=== PATIENT | male | born 1945 | race Caucasian/White ===

== ENCOUNTER → 2017-02-04 | Outpatient (CLI) | payer MEDICARE, BC | LOC: MW.CHGS 08:00 | PROVIDERS: ATTEND Surgery | DX: L82.1 Other seborrheic keratosis (principal) | CPT/HCPCS: 17110 ==

== ENCOUNTER 2017-03-14 07:01 | Emergency (ER) | payer MEDICARE, BC ==
[2017-03-14] MEDS ORDERED: Sodium Chloride 0.9% 10 ML Syringe FLUSH PRN (07:06)
[2017-03-14] MEDS ORDERED: Morphine 2 MG/ML Syringe IVPUSH ONE (07:06)
[2017-03-14] MEDS ORDERED: Ondansetron 4 MG/2 ML SDV IVPUSH ONE (07:06)
[2017-03-14] MEDS ORDERED: Sodium Chloride 0.9% 2.5 ML Syringe FLUSH PRN (07:06)
[2017-03-14] MEDS ORDERED: Sodium Chloride 0.9% 1,000 ML IV SCH (07:15)
--- NOTE | 2017-03-14 07:23 | EDM.PDOC ---
ED HPI GENERAL MEDICAL PROBLEM - General Chief Complaint: Back Pain or Injury Stated Complaint: BACK PAIN, NAUSEA, CAN'T GO TO THE BATHROOM Time Seen by Provider: 03/14/17 07:04 - History of Present Illness INITIAL COMMENTS - FREE TEXT/NARRATIVE: HISTORY AND PHYSICAL: History of present illness: Patient's a 72-year-old white male with history of chronic back problems presents with concern of right flank/back pain acute onset approximately 3:30 AM he denies chest shortness of breath but no vomiting no diarrhea he denies trauma and no numbness no weakness Review of systems: As per history of present illness and below otherwise all systems reviewed and negative. Past medical history: As per history of present illness and as reviewed below otherwise noncontributory. Surgical history: As per history of present illness and as reviewed below otherwise noncontributory. Social history: No reported history of drug or alcohol abuse. Family history: As per history of present illness and as reviewed below otherwise noncontributory. Physical exam: HEENT: Atraumatic, normocephalic, pupils reactive, negative for conjunctival pallor or scleral icterus, mucous membranes moist, throat clear, neck supple, nontender, trachea midline. Lungs: Clear to auscultation, breath sounds equal bilaterally, chest nontender. Heart: S1S2, regular, negative for clicks, rubs, or JVD. Abdomen: Soft, nondistended, nontender. Negative for masses or hepatosplenomegaly. Right-sided costovertebral tenderness. Pelvis: Stable nontender. Genitourinary: Deferred. Rectal: Deferred. Extremities: Atraumatic, negative for cords or calf pain. Neurovascular unremarkable. Neuro: Awake, alert, oriented. Cranial nerves II through XII unremarkable. Cerebellum unremarkable. Motor and sensory unremarkable throughout. Exam nonfocal. Diagnostics: CBC CMP troponin PT/INR chest x-ray EKG CT abdomen and pelvis CT lumbosacral spine Therapeutics: IV O2 monitor morphine sulfate 2 mg IV Zofran 4 mg IV Impression: #1 acute right flank pain Definitive disposition and diagnosis as appropriate pending reevaluation and review of above. Lower Back Pain Score (Numeric/FACES): 6 - Related Data Allergies Allergy/AdvReac Type Severity Reaction Status Date / Time No Known Allergies Allergy Verified 03/14/17 07:05 Home Meds: Home Meds Aspirin [Ecotrin] 81 mg PO DAILY 03/14/17 [History] Glimepiride [Amaryl] 2 mg PO BID 03/14/17 [History] Lisinopril 10 mg PO DAILY 03/14/17 [History] Lutein/Minerals/Vit A,C & E [Ocuvite] 1 tab PO DAILY 03/14/17 [History] Simvastatin [Zocor] 40 mg PO DAILY 03/14/17 [History] metFORMIN [Glucophage XR] 1,000 mg PO BID 03/14/17 [History] Past Medical History HEENT History: Reports: None Cardiovascular History: Reports: Hypertension Respiratory History: Reports: None Gastrointestinal History: Reports: None Genitourinary History: Reports: None Musculoskeletal History: Reports: None Psychiatric History: Reports: None Endocrine/Metabolic History: Reports: Diabetes, Type II Dermatologic History: Reports: None - Past Surgical History HEENT Surgical History: Reports: None GI Surgical History: Reports: None Musculoskeletal Surgical History: Reports: None Social & Family History - Tobacco Use Smoking Status *Q: Never Smoker ED ROS GENERAL - Review of Systems Review Of Systems: ROS reveals no pertinent complaints other than HPI. ED EXAM, GENERAL - Physical Exam Exam: See Below (See dictation) Course - Vital Signs Last Recorded V/S: Last Vital Signs Temp 36.2 C 03/14/17 08:15 Pulse 69 03/14/17 08:15 Resp 15 03/14/17 08:15 BP 160/89 H 03/14/17 08:15 Pulse Ox 96 03/14/17 08:15 - Orders/Labs/Meds Orders: Active Orders 24 hr Category Date Time Status Cardiac Monitoring [RC] . DIRECTED Care 03/14/17 07:04 Active EKG Documentation Completion [RC] STAT Care 03/14/17 07:04 Active Pulse Oximetry [RC] ASDIRECTED Care 03/14/17 07:04 Active Abdomen Pelvis wo Cont [CT] Stat Exams 03/14/17 07:05 Taken Lumbar Spine wo Cont [CT] Stat Exams 03/14/17 07:05 Taken Sodium Chloride 0.9% [Normal Saline] 1,000 ml Med 03/14/17 07:15 Active IV STAT Sodium Chloride 0.9% [Normal Saline] 1,000 ml Med 03/14/17 08:23 Ordered IV STAT Sodium Chloride 0.9% [Saline Flush] Med 03/14/17 07:06 Active 10 ml FLUSH ASDIRECTED PRN Sodium Chloride 0.9% [Saline Flush] Med 03/14/17 07:06 Active 2.5 ml FLUSH ASDIRECTED PRN Saline Lock Insert [OM.PC] Stat Oth 03/14/17 07:04 Ordered Medication Orders Sodium Chloride (Normal Saline) 1,000 mls @ 125 mls/hr IV STAT KP Last Admin: 03/14/17 07:13 Dose: 125 mls/hr Sodium Chloride (Normal Saline) 1,000 mls @ 999 mls/hr IV STAT ONE Stop: 03/14/17 09:23 Sodium Chloride (Saline Flush) 10 ml FLUSH ASDIRECTED PRN PRN Reason: Keep Vein Open Sodium Chloride (Saline Flush) 2.5 ml FLUSH ASDIRECTED PRN PRN Reason: Keep Vein Open Labs: Laboratory Tests 03/14/17 03/14/17 03/14/17 Range/Units 07:11 07:11 07:11 WBC 10.44 (4.0-11.0) K/uL RBC 4.85 (4.50-5.90) M/uL Hgb 14.9 (13.0-17.0) g/dL Hct 43.8 (38.0-50.0) % MCV 90.3 (80.0-98.0) fL MCH 30.7 (27.0-32.0) pg MCHC 34.0 (31.0-37.0) g/dL RDW Std Deviation 41.6 (28.0-62.0) fl RDW Coeff of Jeanne 13 (11.0-15.0) % Plt Count 263 (150-400) K/uL MPV 9.60 (7.40-12.00) fL Neut % (Auto) 65.1 (48.0-80.0) % Lymph % (Auto) 26.4 (16.0-40.0) % Mchenry % (Auto) 5.3 (0.0-15.0) % Eos % (Auto) 2.8 (0.0-7.0) % Baso % (Auto) 0.4 (0.0-1.5) % Neut # (Auto) 6.8 H (1.4-5.7) K/uL Lymph # (Auto) 2.8 H (0.6-2.4) K/uL Mchenry # (Auto) 0.6 (0.0-0.8) K/uL Eos # (Auto) 0.3 (0.0-0.7) K/uL Baso # (Auto) 0.0 (0.0-0.1) K/uL Nucleated RBC % 0.0 /100WBC Nucleated RBCs # 0 K/uL INR 1.13 H (0.86-1.11) Sodium 139 (136-146) mmol/L Potassium 4.2 (3.5-5.1) mmol/L Chloride 106 (98-110) mmol/L Carbon Dioxide 23 (21-31) mmol/L BUN 17 (6.0-23.0) mg/dL Creatinine 1.4 (0.6-1.5) mg/dL Est Cr Clr Drug Dosing 51.58 mL/min Estimated GFR (MDRD) 49.7 ml/min Glucose 208 H (60-110) mg/dL Calcium 9.2 (8.8-10.8) mg/dL Total Bilirubin 0.6 (0.1-1.5) mg/dL AST 15 (5-40) IU/L ALT 26 (8-54) IU/L Alkaline Phosphatase 63 (40-150) Troponin I (0.0-0.29) NG/ML Total Protein 7.7 (6.0-8.0) g/dL Albumin 4.2 (3.4-4.8) g/dL Globulin 3.5 (2.0-3.5) g/dL Albumin/Globulin Ratio 1.2 L (1.3-2.8) Urine Color Urine Appearance Urine pH (5.0-8.0) Ur Specific Fortson (1.001-1.035) Urine Protein (NEGATIVE) mg/dL Urine Glucose (UA) (NEGATIVE) mg/dL Urine Ketones (NEGATIVE) mg/dL Urine Occult Blood (NEGATIVE) Urine Nitrite (NEGATIVE) Urine Bilirubin (NEGATIVE) Urine Urobilinogen (<2.0) EU/dL Ur Leukocyte Esterase (NEGATIVE) Urine RBC (0-2/HPF) Urine WBC (0-5/HPF) Ur Epithelial Cells (NONE-FEW) Urine Bacteria (NEGATIVE) Urine Mucus (NONE-MOD) 03/14/17 03/14/17 Range/Units 07:11 07:58 WBC (4.0-11.0) K/uL RBC (4.50-5.90) M/uL Hgb (13.0-17.0) g/dL Hct (38.0-50.0) % MCV (80.0-98.0) fL MCH (27.0-32.0) pg MCHC (31.0-37.0) g/dL RDW Std Deviation (28.0-62.0) fl RDW Coeff of Jeanne (11.0-15.0) % Plt Count (150-400) K/uL MPV (7.40-12.00) fL Neut % (Auto) (48.0-80.0) % Lymph % (Auto) (16.0-40.0) % Mchenry % (Auto) (0.0-15.0) % Eos % (Auto) (0.0-7.0) % Baso % (Auto) (0.0-1.5) % Neut # (Auto) (1.4-5.7) K/uL Lymph # (Auto) (0.6-2.4) K/uL Mchenry # (Auto) (0.0-0.8) K/uL Eos # (Auto) (0.0-0.7) K/uL Baso # (Auto) (0.0-0.1) K/uL Nucleated RBC % /100WBC Nucleated RBCs # K/uL INR (0.86-1.11) Sodium (136-146) mmol/L Potassium (3.5-5.1) mmol/L Chloride (98-110) mmol/L Carbon Dioxide (21-31) mmol/L BUN (6.0-23.0) mg/dL Creatinine (0.6-1.5) mg/dL Est Cr Clr Drug Dosing mL/min Estimated GFR (MDRD) ml/min Glucose (60-110) mg/dL Calcium (8.8-10.8) mg/dL Total Bilirubin (0.1-1.5) mg/dL AST (5-40) IU/L ALT (8-54) IU/L Alkaline Phosphatase (40-150) Troponin I < 0.10 (0.0-0.29) NG/ML Total Protein (6.0-8.0) g/dL Albumin (3.4-4.8) g/dL Globulin (2.0-3.5) g/dL Albumin/Globulin Ratio (1.3-2.8) Urine Color YELLOW Urine Appearance CLEAR Urine pH 5.5 (5.0-8.0) Ur Specific [place]son >= 1.030 (1.001-1.035) Urine Protein 30 (NEGATIVE) mg/dL Urine Glucose (UA) 100 H (NEGATIVE) mg/dL Urine Ketones NEGATIVE (NEGATIVE) mg/dL Urine Occult Blood NEGATIVE (NEGATIVE) Urine Nitrite NEGATIVE (NEGATIVE) Urine Bilirubin NEGATIVE (NEGATIVE) Urine Urobilinogen 0.2 (<2.0) EU/dL Ur Leukocyte Esterase NEGATIVE (NEGATIVE) Urine RBC 0-1 (0-2/HPF) Urine WBC 1-3 (0-5/HPF) Ur Epithelial Cells RARE (NONE-FEW) Urine Bacteria FEW (NEGATIVE) Urine Mucus HEAVY (NONE-MOD) Meds: Medications Generic Name Dose Route Start Last Admin Trade Name Juanito PRN Reason Stop Dose Admin Sodium Chloride 1,000 mls @ 125 mls/hr 03/14/17 07:15 03/14/17 07:13 Normal Saline IV 125 mls/hr STAT KP Administration Sodium Chloride 1,000 mls @ 999 mls/hr 03/14/17 08:23 Normal Saline IV 03/14/17 09:23 STAT ONE Sodium Chloride 10 ml 03/14/17 07:06 Saline Flush FLUSH ASDIRECTED PRN Keep Vein Open Sodium Chloride 2.5 ml 03/14/17 07:06 Saline Flush FLUSH ASDIRECTED PRN Keep Vein Open Discontinued Medications Generic Name Dose Route Start Last Admin Trade Name Juanito PRN Reason Stop Dose Admin Ketorolac Tromethamine 15 mg 03/14/17 08:23 Toradol IVPUSH 03/14/17 08:24 ONETIME ONE Morphine Sulfate 2 mg 03/14/17 07:06 03/14/17 07:14 Morphine IVPUSH 03/14/17 07:07 2 mg ONETIME ONE Administration Ondansetron HCl 4 mg 03/14/17 07:06 03/14/17 07:12 Zofran IVPUSH 03/14/17 07:07 4 mg ONETIME ONE Administration Tamsulosin HCl 0.4 mg 03/14/17 08:23 Flomax PO 03/14/17 08:24 ONETIME ONE Departure - Departure Time of Disposition: 08:26 Disposition: Home, Self-Care 01 Condition: Good Clinical Impression: Kidney stone on right side - Discharge Information Forms: ED Department Discharge Additional Instructions: The following information is given to patients seen in the emergency department who are being discharged to home. This information is to outline your options for follow-up care. We provide all patients seen in our emergency department with a follow-up referral. The need for follow-up, as well as the timing and circumstances, are variable depending upon the specifics of your emergency department visit. If you don't have a primary care physician on staff, we will provide you with a referral. We always advise you to contact your personal physician following an emergency department visit to inform them of the circumstance of the visit and for follow-up with them and/or the need for any referrals to a consulting specialist. The emergency department will also refer you to a specialist when appropriate. This referral assures that you have the opportunity for followup care with a specialist. All of these measure are taken in an effort to provide you with optimal care, which includes your followup. Under all circumstances we always encourage you to contact your private physician who remains a resource for coordinating your care. When calling for followup care, please make the office aware that this follow-up is from your recent emergency room visit. If for any reason you are refused follow-up, please contact the [facility] emergency department at and asked to speak to the emergency department charge nurse. [facility] Specialty Care - Urology [address] [place] [id number] Hydrocodone Flomax Zofran as prescribed push fluids follow up with urology above as discussed return as needed as discussed - My Orders Last 24 Hours: My Active Orders 03/14/17 07:04 Cardiac Monitoring [RC] . DIRECTED EKG Documentation Completion [RC] STAT Pulse Oximetry [RC] ASDIRECTED Saline Lock Insert [OM.PC] Stat 03/14/17 07:05 Abdomen Pelvis wo Cont [CT] Stat Lumbar Spine wo Cont [CT] Stat 03/14/17 07:06 Sodium Chloride 0.9% [Saline Flush] 10 ml FLUSH ASDIRECTED PRN Sodium Chloride 0.9% [Saline Flush] 2.5 ml FLUSH ASDIRECTED PRN 03/14/17 07:15 Sodium Chloride 0.9% [Normal Saline] 1,000 ml IV STAT 03/14/17 08:23 Sodium Chloride 0.9% [Normal Saline] 1,000 ml IV STAT - Assessment/Plan Last 24 Hours: My Active Orders 03/14/17 07:04 Cardiac Monitoring [RC] . DIRECTED EKG Documentation Completion [RC] STAT Pulse Oximetry [RC] ASDIRECTED Saline Lock Insert [OM.PC] Stat 03/14/17 07:05 Abdomen Pelvis wo Cont [CT] Stat Lumbar Spine wo Cont [CT] Stat 03/14/17 07:06 Sodium Chloride 0.9% [Saline Flush] 10 ml FLUSH ASDIRECTED PRN Sodium Chloride 0.9% [Saline Flush] 2.5 ml FLUSH ASDIRECTED PRN 03/14/17 07:15 Sodium Chloride 0.9% [Normal Saline] 1,000 ml IV STAT 03/14/17 08:23 Sodium Chloride 0.9% [Normal Saline] 1,000 ml IV STAT
[2017-03-14] MEDS ORDERED: Ketorolac 30 MG/ML SDV IVPUSH ONE (08:23)
[2017-03-14] MEDS ORDERED: Sodium Chloride 0.9% 1,000 ML IV ONE (08:23)
[2017-03-14] MEDS ORDERED: Tamsulosin 0.4 MG Cap.ER PO ONE (08:23)
[2017-03-14 09:37] VITALS: BP 152/84
--- NOTE | 2017-03-14 13:46 | CT ---
EXAM DATE: 03/14/17 PATIENT'S AGE: 72 Patient: DARRYN ROLDAN Facility: [place], [place] Site . Site : 1945 Study: CT Spine Lumbar [id number]/30/2017 7:43:33 AM Ordering Physician: Doctor Griffin Final Report: INDICATION: Right-sided abdominal pain since 2 a.m.; nausea; inability to urinate. Comparison: CT abdomen and pelvis without intravenous contrast March 14, 2017. Technique: CT lumbar sacral spine without intravenous contrast; coronal and sagittal reformats. Findings: Disc space narrowing and disc degeneration at L1-2 and L2-3. Hemangioma involving T12 and L2. No evidence of herniation of the intervertebral discs. No evidence of foraminal narrowing. No paraspinal soft tissue mass densities. No evidence of fracture or dislocation. No evidence of spondylolysis or spondylolisthesis. Disk degeneration and disc space narrowing at L5-S1. Evidence of facet joint arthritis lower lumbar spine bilateral. Hydronephrosis and hydroureter on the right side. Impression: 1. Hemangiomas involving T12 and L2. 2. Disc space narrowing and disc degeneration at L1-2, L2-3 and L5-S1. 3. No evidence of disc herniation or foraminal narrowing on either side. 4. 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 5. Hydronephrosis and hydroureter on the right. Please note that all CT scans at this facility use dose modulation, iterative reconstruction, and/or weight-based dosing when appropriate to reduce radiation dose to as low as reasonably achievable. Dictated by Manuel Temple MD @ Mar 14 2017 8:13AM (Electronic Signature) Report Signed by Proxy. [facility]
--- NOTE | 2017-03-14 13:47 | CT ---
EXAM DATE: 03/14/17 PATIENT'S AGE: 72 Patient: DARRYN ROLDAN Facility: [place], [place] : 1945 Study: CT Abdomen/Pelvis [id number]/30/2017 8:02:41 AM Ordering Physician: Cherie Final Report: INDICATION: Right flank pain since 2 a.m.; nausea; inability to urinate. Comparison: CT lumbar sacral spine same date. Technique: CT abdomen and pelvis without intravenous or oral contrast; coronal and sagittal reformats. Findings: Atelectatic changes inferior segment left lingula. 1 cm pleural-based soft tissue nodule left lower lobe as noted on slice 14 of series 201; followup chest CT suggested. No evidence of pleural effusion. No focal hepatic or splenic pathology. No pancreatic pathology. Gallbladder is unremarkable. No adrenal pathology. Nonobstructing renal calculus mid posterior calyx left kidney. Hydronephrosis and hydroureter on the right with a 5 mm stone at the ureterovesical junction on the right side. No retroperitoneal lymphadenopathy. Normal appendix. No evidence of abdominal or pelvic ascites. CT study of the pelvis is unremarkable. Impression: 1. 5 mm stone at the right ureterovesical junction causing hydronephrosis and hydroureter. 2. Nonobstructing calculus mid posterior calyx left kidney. 3. Normal appendix. 4. 1 cm pleural-based nodule lower lobe left lung; suggest obtaining a dedicated chest CT. 5. Atelectatic changes inferior segment left lingula. Please note that all CT scans at this facility use dose modulation, iterative reconstruction, and/or weight-based dosing when appropriate to reduce radiation dose to as low as reasonably achievable. Dictated by Manuel Temple MD @ Mar 14 2017 8:08AM (Electronic Signature) Report Signed by Proxy. [facility]
== END 2017-03-14 09:21 | disposition home or self-care (01) ==
LOC: MW.ED 07:01
DX: N13.2 Hydronephrosis with renal and ureteral calculous obstruction (principal); E11.9 Type 2 diabetes mellitus without complications; I10 Essential (primary) hypertension; Z79.82 Long term (current) use of aspirin; Z79.899 Other long term (current) drug therapy; Z79.84 Long term (current) use of oral hypoglycemic drugs
CPT/HCPCS: 36415; 72131; 74176; 80053; 81001; 84484; 85025; 85610; 87086; 96361; 96374; 96375; 99284; A9270; J1885; J2270; J2405; J7040

== ENCOUNTER 2019-01-21 20:42 | Emergency (ER) | payer MEDICARE, BC ==
[2019-01-21] MEDS ORDERED: Bacitracin Oint 1 GM U/D Packet TOP ONE (21:08)
--- NOTE | 2019-01-21 21:10 | EDM.PDOC ---
ED HPI GENERAL MEDICAL PROBLEM - General Chief Complaint: Skin Complaint Stated Complaint: BUMP ON BACK Time Seen by Provider: 01/21/19 20:44 - History of Present Illness INITIAL COMMENTS - FREE TEXT/NARRATIVE: HISTORY AND PHYSICAL: History of present illness: The patient is a 73-year-old male with a history of diabetes hypertension and hypercholesterolemia who follows in our clinic and presents with a bump on his left back that he noticed a couple of days ago. He says is not been itchy or painful and he doesn't really feel anything in the area but his was concerned as it looked red and and there was an open area and the skin. He's had no systemic complaints of fever chills chest pain or shortness of breath no abdominal pain and he says his diabetes is under good control. He says that he has no discomfort in his back and in fact doesn't even notice that it's there. Review of systems: As per history of present illness and below otherwise all systems reviewed and negative. Past medical history: As per history of present illness and as reviewed below otherwise noncontributory. Surgical history: As per history of present illness and as reviewed below otherwise noncontributory. Social history: No reported history of drug or alcohol abuse. Family history: As per history of present illness and as reviewed below otherwise noncontributory. Physical exam: HEENT: Atraumatic, normocephalic, negative for conjunctival pallor or scleral icterus, mucous membranes moist, throat clear, neck supple, nontender, trachea midline. Lungs: Clear to auscultation, breath sounds equal bilaterally, chest nontender. Heart: S1S2, regular rate and rhythm no overt murmurs Abdomen: Soft, nondistended, nontender. NABS Pelvis: Deferred Genitourinary: Deferred. Rectal: Deferred. Extremities: Atraumatic, full range of motion Neurovascular unremarkable. Neuro: Awake, alert, oriented. Cranial nerves II through XII unremarkable. Cerebellum unremarkable. Motor and sensory unremarkable throughout. Exam nonfocal. Skin: Turgor is normal and there are no overt rashes or lesions with the exception of the left upper back just superior to the scapula area where there is a well demarcated pinkish area of induration that measures 3 x 4 cm. Within the center of this there are 2 more hardened areas one of which looks like the surface of the superficial skin has been scratched off and the other has a small punctum but there is no pus or fluctuance. There is absolutely no tenderness in the area or fluctuance and it is mostly hardened. Remainder the back is without any lesions Diagnostics: [] Therapeutics: Bacitracin nonstick dressing to I explained to the patient that this almost looks like some kind of a bite that is getting infected and indurated. I will advise him on local wound care and place bacitracin on it here. I will place him on antibiotics and stress follow-up in the clinic Impression: Back lesion/cellulitis Definitive disposition and diagnosis as appropriate pending reevaluation and review of above. - Related Data Allergies Allergy/AdvReac Type Severity Reaction Status Date / Time No Known Allergies Allergy Verified 01/21/19 20:47 Home Meds: Home Meds Aspirin [Ecotrin] 81 mg PO DAILY 03/14/17 [History] Glimepiride [Amaryl] 2 mg PO BID 03/14/17 [History] Lisinopril 10 mg PO DAILY 03/14/17 [History] Lutein/Minerals/Vit A,C & E [Ocuvite] 1 tab PO DAILY 03/14/17 [History] Simvastatin [Zocor] 40 mg PO DAILY 03/14/17 [History] metFORMIN [Glucophage XR] 1,000 mg PO BID 03/14/17 [History] Past Medical History HEENT History: Reports: None Cardiovascular History: Reports: High Cholesterol, Hypertension Respiratory History: Reports: None Gastrointestinal History: Reports: None Genitourinary History: Reports: None Musculoskeletal History: Reports: None Psychiatric History: Reports: None Endocrine/Metabolic History: Reports: Diabetes, Type II Dermatologic History: Reports: None - Past Surgical History HEENT Surgical History: Reports: None GI Surgical History: Reports: None Musculoskeletal Surgical History: Reports: Amputation, Other (See Below) Other Musculoskeletal Surgeries/Procedures:: finger Social & Family History - Family History Family Medical History: Noncontributory - Tobacco Use Smoking Status *Q: Never Smoker - Recreational Drug Use Recreational Drug Use: No ED ROS GENERAL - Review of Systems Review Of Systems: ROS reveals no pertinent complaints other than HPI. ED EXAM, SKIN/RASH Exam: See Below (See dictation) Course - Vital Signs Last Recorded V/S: Last Vital Signs Temp 36.1 C 01/21/19 20:50 Pulse 87 01/21/19 20:50 Resp 18 01/21/19 20:50 BP 148/76 H 01/21/19 20:50 Pulse Ox 94 L 01/21/19 20:50 Departure - Departure Time of Disposition: 21:08 Disposition: Home, Self-Care 01 Condition: Good Clinical Impression: Back skin lesion Cellulitis Qualifiers: Site of cellulitis: other site Qualified Code(s): L03.818 - Cellulitis of other sites - Discharge Information Referrals: Ev Colby PA [Primary Care Provider] - Additional Instructions: The following information is given to patients seen in the emergency department who are being discharged to home. This information is to outline your options for follow-up care. We provide all patients seen in our emergency department with a follow-up referral. The need for follow-up, as well as the timing and circumstances, are variable depending upon the specifics of your emergency department visit. If you don't have a primary care physician on staff, we will provide you with a referral. We always advise you to contact your personal physician following an emergency department visit to inform them of the circumstance of the visit and for follow-up with them and/or the need for any referrals to a consulting specialist. The emergency department will also refer you to a specialist when appropriate. This referral assures that you have the opportunity for followup care with a specialist. All of these measure are taken in an effort to provide you with optimal care, which includes your followup. Under all circumstances we always encourage you to contact your private physician who remains a resource for coordinating your care. When calling for followup care, please make the office aware that this follow-up is from your recent emergency room visit. If for any reason you are refused follow-up, please contact the [facility] emergency department at and ask to speak to the emergency department charge nurse. [facility] Primary care- Internal Medicine and Family [address] [address] Keep area clean and dry cleansing with mild soap and water pat dry and apply bacitracin or Neosporin. You may take Benadryl [id number] or apply Benadryl cream for any itching. Please take antibiotics as prescribed and call and schedule a follow-up appointment in the clinic for further care and evaluation. Return to ER as needed and as discussed
[2019-01-21 21:23] VITALS: BP 138/70
== END 2019-01-21 21:25 | disposition home or self-care (01) ==
LOC: MW.ED 20:42
DX: L03.312 Cellulitis of back [any part except buttock and flank] (principal); E78.00 Pure hypercholesterolemia, unspecified; I10 Essential (primary) hypertension; E11.9 Type 2 diabetes mellitus without complications; Z79.82 Long term (current) use of aspirin; Z79.899 Other long term (current) drug therapy
CPT/HCPCS: 99282; 99283

== ENCOUNTER 2019-01-29 15:19 | Emergency (ER) | payer MEDICARE, BC ==
--- NOTE | 2019-01-29 15:42 | EDM.PDOC ---
ED HPI GENERAL MEDICAL PROBLEM - General Chief Complaint: Laceration Stated Complaint: INJURED FINGER Time Seen by Provider: 01/29/19 15:37 - History of Present Illness INITIAL COMMENTS - FREE TEXT/NARRATIVE: HISTORY AND PHYSICAL: History of present illness: Patient is 73-year-old white male presents with a laceration of third digit of his left hand that occurred when he was cutting on her mouth he denies trauma concern Review of systems: As per history of present illness and below otherwise all systems reviewed and negative. Past medical history: As per history of present illness and as reviewed below otherwise noncontributory. Surgical history: As per history of present illness and as reviewed below otherwise noncontributory. Social history: No reported history of drug or alcohol abuse. Family history: As per history of present illness and as reviewed below otherwise noncontributory. Physical exam: HEENT: Atraumatic, normocephalic, pupils reactive, negative for conjunctival pallor or scleral icterus, mucous membranes moist, throat clear, neck supple, nontender, trachea midline. Lungs: Clear to auscultation, breath sounds equal bilaterally, chest nontender. Heart: S1S2, regular, negative for clicks, rubs, or JVD. Abdomen: Soft, nondistended, nontender. Negative for masses or hepatosplenomegaly. Negative for costovertebral tenderness. Pelvis: Stable nontender. Genitourinary: Deferred. Rectal: Deferred. Extremities: Patient has approximately a 2-1/2 cm moderate depth laceration to the third digit of his left hand this is distal involvement and neurovascular exam is unremarkable Neuro: Awake, alert, oriented. Cranial nerves II through XII unremarkable. Cerebellum unremarkable. Motor and sensory unremarkable throughout. Exam nonfocal. Diagnostics: None Therapeutics: Tetanus was updated patient was anesthetized 1% lidocaine without epinephrine prepped and draped in sterile manner and closed with 5-0 absorbable suture bacitracin dressing was applied Impression: #1 hand injury ( laceration third digit left hand) Definitive disposition and diagnosis as appropriate pending reevaluation and review of above. - Related Data Allergies Allergy/AdvReac Type Severity Reaction Status Date / Time No Known Allergies Allergy Verified 01/29/19 15:31 Home Meds: Home Meds Aspirin [Ecotrin] 81 mg PO DAILY 03/14/17 [History] Glimepiride [Amaryl] 2 mg PO BID 03/14/17 [History] Lisinopril 10 mg PO DAILY 03/14/17 [History] Lutein/Minerals/Vit A,C & E [Ocuvite] 1 tab PO DAILY 03/14/17 [History] Simvastatin [Zocor] 40 mg PO DAILY 03/14/17 [History] metFORMIN [Glucophage XR] 1,000 mg PO BID 03/14/17 [History] Canagliflozin [Invokana] 100 mg PO DAILY 01/29/19 [History] Past Medical History HEENT History: Reports: None Cardiovascular History: Reports: High Cholesterol, Hypertension Respiratory History: Reports: None Gastrointestinal History: Reports: None Genitourinary History: Reports: None Musculoskeletal History: Reports: None Psychiatric History: Reports: None Endocrine/Metabolic History: Reports: Diabetes, Type II Dermatologic History: Reports: None - Infectious Disease History Infectious Disease History: Reports: Chicken Pox, Mumps, Shingles - Past Surgical History HEENT Surgical History: Reports: None GI Surgical History: Reports: None Musculoskeletal Surgical History: Reports: Amputation, Other (See Below) Other Musculoskeletal Surgeries/Procedures:: finger Social & Family History - Family History Family Medical History: Noncontributory - Tobacco Use Smoking Status *Q: Never Smoker - Recreational Drug Use Recreational Drug Use: No ED ROS GENERAL - Review of Systems Review Of Systems: ROS reveals no pertinent complaints other than HPI. ED EXAM, SKIN/RASH Exam: See Below (See dictation) Course - Vital Signs Last Recorded V/S: Last Vital Signs Temp 36.1 C 01/29/19 15:26 Pulse 83 01/29/19 15:26 Resp 18 01/29/19 15:26 BP 146/84 H 01/29/19 15:26 Pulse Ox 92 L 01/29/19 15:26 Departure - Departure Time of Disposition: 15:41 Disposition: Home, Self-Care 01 Condition: Good Clinical Impression: Hand laceration - Discharge Information Referrals: PCP,Unknown [Primary Care Provider] - Additional Instructions: The following information is given to patients seen in the emergency department who are being discharged to home. This information is to outline your options for follow-up care. We provide all patients seen in our emergency department with a follow-up referral. The need for follow-up, as well as the timing and circumstances, are variable depending upon the specifics of your emergency department visit. If you don't have a primary care physician on staff, we will provide you with a referral. We always advise you to contact your personal physician following an emergency department visit to inform them of the circumstance of the visit and for follow-up with them and/or the need for any referrals to a consulting specialist. The emergency department will also refer you to a specialist when appropriate. This referral assures that you have the opportunity for followup care with a specialist. All of these measure are taken in an effort to provide you with optimal care, which includes your followup. Under all circumstances we always encourage you to contact your private physician who remains a resource for coordinating your care. When calling for followup care, please make the office aware that this follow-up is from your recent emergency room visit. If for any reason you are refused follow-up, please contact the [facility] emergency department at and asked to speak to the emergency department charge nurse. Follow-up primary medical doctor for wound check and return as needed as discussed
[2019-01-29] MEDS ORDERED: Diphtheria,Pertussis(Acell),Tetanus Vaccine 0.5 ML Syringe IM ONE (16:09)
[2019-01-29 16:28] VITALS: BP 133/77
== END 2019-01-29 16:28 | disposition home or self-care (01) ==
LOC: MW.ED 15:19
DX: S61.213A Laceration without foreign body of left middle finger without damage to nail, initial encounter (principal); E78.00 Pure hypercholesterolemia, unspecified; E11.9 Type 2 diabetes mellitus without complications; I10 Essential (primary) hypertension; Z79.82 Long term (current) use of aspirin; Z79.84 Long term (current) use of oral hypoglycemic drugs; Z79.899 Other long term (current) drug therapy; Z23 Encounter for immunization; W45.8XXA Other foreign body or object entering through skin, initial encounter
CPT/HCPCS: 12001; 90471; 90715; 99282; J2001

== ENCOUNTER 2020-01-20 15:07 | Emergency (ER) | payer MEDICARE, BC ==
[2020-01-20] MEDS ORDERED: Ketorolac 30 MG/ML SDV IM ONE (15:21)
--- NOTE | 2020-01-20 15:21 | EDM.PDOC ---
ED HPI GENERAL MEDICAL PROBLEM - General Chief Complaint: Lower Extremity Injury/Pain Stated Complaint: LEFT HIP PAIN Time Seen by Provider: 01/20/20 15:13 Source of Information: Reports: Patient History Limitations: Reports: No Limitations - History of Present Illness INITIAL COMMENTS - FREE TEXT/NARRATIVE: HISTORY AND PHYSICAL: History of present illness: Patient is a 74-year-old male who presents to the emergency room with complaints of left lateral hip pain x4 to 6 weeks. He states he has noticed this pain which has been mild and constant over the past 1-1/2 months, worse within the last 2 days. He describes the pain over the past 2 days as a burning sensation and achy. He denies any injury, trauma or falls. No previous fracture or known injury to the affected extremity. This pain does not radiate into his groin/testes or into the gluteal muscle. Physical activity does not make the pain worse. His skin is intact without any redness, swelling, rashes or tenderness to palpation. Review of systems: As per history of present illness and below otherwise all systems reviewed and negative. Past medical history: As per history of present illness and as reviewed below otherwise noncontributory. Surgical history: As per history of present illness and as reviewed below otherwise noncontributory. Social history: See social history for further information Family history: As per history of present illness and as reviewed below otherwise noncontributory. Physical exam: General: Well-developed and well-nourished 74-year-old male. Alert and oriented. Nontoxic-appearing and in no acute distress. HEENT: Atraumatic, normocephalic, pupils equal and reactive bilaterally, negative for conjunctival pallor or scleral icterus, mucous membranes moist, trachea midline. No drooling or trismus noted. No meningeal signs. No hot potato voice noted. Lungs: Clear to auscultation, breath sounds equal bilaterally, chest nontender. Heart: S1S2, regular rate and rhythm without overt murmur Abdomen: Soft, nondistended, nontender. Negative for masses or hepatosplenomegaly. Negative for costovertebral tenderness. Pelvis: Stable nontender. Skin: Intact, warm, dry. No lesions or rashes noted. C-spine/Back: No pinpoint vertebral tenderness upon palpation. No crepitus, step -offs or obvious deformities. Patient is ambulatory into the emergency room without difficulty or deficit. Able to rock back on heels and walk on toes. Denies any urinary or fecal incontinence. Denies any numbness, tingling or saddle paresthesia. Extremities: Atraumatic, moves all extremities per self without difficulty or deficits, left hip is nontender, full ROM, negative for cords or calf pain. Neurovascular unremarkable. Neuro: Awake, alert, oriented. Cranial nerves II through XII unremarkable. Cerebellum unremarkable. Motor and sensory unremarkable throughout. Exam nonfocal. Notes: X-ray shows no acute bony abnormalities. Mild joint space narrowing in both hips. I do not have any concern at this time for a septic joint; we discussed the need for follow up with orthopedics. Patient states he is pain free at this time. Supportive care measures were reviewed and discussed. Voices understanding and is agreeable to plan of care. Denies any further questions or concerns at this time. Diagnostics: Pelvis with left hip Therapeutics: Toradol IM Prescription: Diclofenac 50mg BID PRN Impression: Left hip pain Plan: 1. Rest, ice, elevate the affected extremity. 2. Tylenol and/or Ibuprofen as needed for pain management. 3. Follow up with the Orthopedic provider as we discussed, call tomorrow to set up follow-up appointment. Return to the ED as needed and as discussed. Definitive disposition and diagnosis as appropriate pending reevaluation and review of above. left hip Pain Score (Numeric/FACES): 5 - Related Data Allergies Allergy/AdvReac Type Severity Reaction Status Date / Time No Known Allergies Allergy Verified 01/29/19 15:31 Home Meds: Home Meds Aspirin [Ecotrin EC] 81 mg PO DAILY 03/14/17 [History] Glimepiride [Amaryl] 2 mg PO BID 03/14/17 [History] Lisinopril 10 mg PO DAILY 03/14/17 [History] Lutein/Minerals/Vit A,C & E [Ocuvite] 1 tab PO DAILY 03/14/17 [History] Simvastatin [Zocor] 40 mg PO DAILY 03/14/17 [History] metFORMIN [Glucophage XR] 1,000 mg PO BID 03/14/17 [History] Canagliflozin [Invokana] 100 mg PO DAILY 01/29/19 [History] Diclofenac Sodium 50 mg PO BID PRN #20 tablet. 01/20/20 [Rx] Past Medical History HEENT History: Reports: None Cardiovascular History: Reports: High Cholesterol, Hypertension Respiratory History: Reports: None Gastrointestinal History: Reports: None Genitourinary History: Reports: None Musculoskeletal History: Reports: None Psychiatric History: Reports: None Endocrine/Metabolic History: Reports: Diabetes, Type II Dermatologic History: Reports: None - Infectious Disease History Infectious Disease History: Reports: Chicken Pox, Mumps, Shingles - Past Surgical History HEENT Surgical History: Reports: None GI Surgical History: Reports: None Musculoskeletal Surgical History: Reports: Amputation, Other (See Below) Other Musculoskeletal Surgeries/Procedures:: finger Social & Family History - Family History Family Medical History: Noncontributory Review of Systems - Review of Systems Review Of Systems: Comprehensive ROS is negative, except as noted in HPI. ED EXAM, GENERAL - Physical Exam Exam: See Below (See dictation) Course - Vital Signs Last Recorded V/S: Last Vital Signs Temp 96.5 F L 01/20/20 15:10 Pulse 119 H 01/20/20 15:10 Resp 18 01/20/20 15:10 BP 148/110 H 01/20/20 15:10 Pulse Ox 92 L 01/20/20 15:10 - Orders/Labs/Meds Meds: Medications Discontinued Medications Generic Name Dose Route Start Last Admin Trade Name Juanito PRN Reason Stop Dose Admin Ketorolac Tromethamine 30 mg 01/20/20 15:21 01/20/20 15:26 Toradol IM 01/20/20 15:22 30 mg ONETIME ONE Administration Departure - Departure Time of Disposition: 16:07 Disposition: Home, Self-Care 01 Clinical Impression: Left hip pain - Discharge Information Prescriptions: Diclofenac Sodium 50 mg PO BID PRN #20 tablet.dr DIAZ Reason: Pain Referrals: Alverto Echols MD [Primary Care Provider] - Forms: ED Department Discharge Additional Instructions: The following information is given to patients seen in the emergency department who are being discharged to home. This information is to outline your options for follow-up care. We provide all patients seen in our emergency department with a follow-up referral. The need for follow-up, as well as the timing and circumstances, are variable depending upon the specifics of your emergency department visit. If you don't have a primary care physician on staff, we will provide you with a referral. We always advise you to contact your personal physician following an emergency department visit to inform them of the circumstance of the visit and for follow-up with them and/or the need for any referrals to a consulting specialist. The emergency department will also refer you to a specialist when appropriate. This referral assures that you have the opportunity for follow-up care with a specialist. All of these measure are taken in an effort to provide you with optimal care, which includes your follow-up. Under all circumstances we always encourage you to contact your private physician who remains a resource for coordinating your care. When calling for follow-up care, please make the office aware that this follow-up is from your recent emergency room visit. If for any reason you are refused follow-up, please contact the [facility] Emergency Department at and asked to speak to the emergency department charge nurse. [facility] [address], [address] [place] [address] 1. Rest and gentle heat affected extremity. 2. Tylenol and/or Ibuprofen as needed for pain management. 3. Follow up with the Orthopedic provider as we discussed, call tomorrow to set up follow-up appointment. Return to the ED as needed and as discussed. Sepsis Event Note - Focused Exam Vital Signs: Vital Signs Temp Pulse Resp BP Pulse Ox 01/20/20 15:10 96.5 F L 119 H 18 148/110 H 92 L Date Exam was Performed: 01/20/20 Time Exam was Performed: 16:09
--- NOTE | 2020-01-20 16:04 | CR ---
Pelvis and left hip: AP view of the pelvis was obtained as well as AP view of the left hip and frog-leg lateral view left hip. Mild joint space narrowing is seen within both hips. Osteopenia is noted. Vascular calcification is seen. No acute fracture or dislocation is seen. Impression: 1. Mild joint space narrowing within both hips. 2. Other findings as noted above. 3. No acute abnormality is appreciated. Diagnostic code #2 This report was dictated in MDT
[2020-01-20 16:32] VITALS: BP 114/71; PULSE 96
== END 2020-01-20 16:15 | disposition home or self-care (01) ==
LOC: MW.ED 15:07
DX: M25.552 Pain in left hip (principal); E78.00 Pure hypercholesterolemia, unspecified; I10 Essential (primary) hypertension; E11.9 Type 2 diabetes mellitus without complications; Z79.84 Long term (current) use of oral hypoglycemic drugs; Z79.82 Long term (current) use of aspirin; Z79.899 Other long term (current) drug therapy
CPT/HCPCS: 73502; 96372; 99283; J1885

== ENCOUNTER 2020-02-28 10:25 | Day surgery (SDC) | payer MEDICARE, BC ==
[~2020-02-28 10:25] MED LIST: Lactated Ringers 1,000 ML IV SCH; ceFAZolin 2 GM in Premix Bag 1 BAG IV SCH
[2020-02-28] MEDS ORDERED: Bupivacaine 0.5% 10 ML SDV ONE (11:08)
[2020-02-28] MEDS ORDERED: ceFAZolin 1 GM Vial ONE (11:08)
[2020-02-28] MEDS ORDERED: Propofol 200 MG/20 ML SDV ONE (11:11)
[2020-02-28] MEDS ORDERED: fentaNYL 250 MCG/5 ML SDV ONE (11:11)
--- NOTE | 2020-02-28 11:13 | PCM.PREANE ---
Preanesthetic Assessment - Anesthesia/Transfusion/Family Hx Anesthesia History: Prior Anesthesia Without Reaction Family History of Anesthesia Reaction: No Transfusion History: No Prior Transfusion(s) Intubation History: Unknown - Review of Systems General: No Symptoms Pulmonary: No Symptoms Cardiovascular: No Symptoms Gastrointestinal: No Symptoms Neurological: No Symptoms Other: Reports: None - Physical Assessment Height: 5 ft 11 in Weight: 86.636 kg ASA Class: 3 Mental Status: Alert & Oriented x3 Airway Class: Mallampati = 2 Dentition: Reports: Normal Dentition Thyro-Mental Finger Breadths: 3 Mouth Opening Finger Breadths: 3 ROM/Head Extension: Full Lungs: Clear to Auscultation, Normal Respiratory Effort Cardiovascular: Regular Rate, Regular Rhythm - Allergies Allergies/Adverse Reactions: Allergies Allergy/AdvReac Type Severity Reaction Status Date / Time No Known Allergies Allergy Verified 02/28/20 10:44 - Blood Blood Available: No - Anesthesia Plan Pre-Op Medication Ordered: None - Acknowledgements Anesthesia Type Planned: General Anesthesia Pt an Appropriate Candidate for the Planned Anesthesia: Yes Alternatives and Risks of Anesthesia Discussed w Pt/Guardian: Yes Pt/Guardian Understands and Agrees with Anesthesia Plan: Yes PreAnesthesia Questionnaire HEENT History: Reports: Other (See Below) Other HEENT History: wears glasses Cardiovascular History: Reports: High Cholesterol, Hypertension Respiratory History: Reports: None Gastrointestinal History: Reports: Diverticulosis, Other (See Below) (h/o gastric polyp) Genitourinary History: Reports: Renal Calculus Musculoskeletal History: Reports: Fracture Neurological History: Reports: None Psychiatric History: Reports: None, Other (See Below) (h/o depression) Endocrine/Metabolic History: Reports: Diabetes, Type II Hematologic History: Reports: None Immunologic History: Reports: None Oncologic (Cancer) History: Reports: None Dermatologic History: Reports: None - Infectious Disease History Infectious Disease History: Reports: Chicken Pox, Mumps, Shingles - Past Surgical History Head Surgeries/Procedures: Reports: None HEENT Surgical History: Reports: None Cardiovascular Surgical History: Reports: None Respiratory Surgical History: Reports: None GI Surgical History: Reports: Colonoscopy (,), EGD Male Surgical History: Reports: None Endocrine Surgical History: Reports: None Neurological Surgical History: Reports: None Musculoskeletal Surgical History: Reports: Other (See Below) Other Musculoskeletal Surgeries/Procedures:: repair of fx ankle with hardware Oncologic Surgical History: Reports: None Dermatological Surgical History: Reports: None - SUBSTANCE USE Smoking Status *Q: Former Smoker Tobacco Use Within Last Twelve Months: No Recreational Drug Use History: No - HOME MEDS Home Medications: Home Meds Aspirin [Ecotrin EC] 81 mg PO DAILY 03/14/17 [History] Lisinopril 10 mg PO BEDTIME 03/14/17 [History] Simvastatin [Zocor] 10 mg PO BEDTIME 03/14/17 [History] metFORMIN [Glucophage XR] 1,000 mg PO BID 03/14/17 [History] Dulaglutide [Trulicity] 1 injection SUBCUT WEEKLY 02/24/20 [History] glipiZIDE [Glipizide ER] 5 mg PO DAILY 02/24/20 [History] - CURRENT (IN HOUSE) MEDS Current Meds: Current Medications Cefazolin Sodium/Dextrose 2 gm (/ Premix) 50 mls @ 100 mls/hr IV ONETIME KP Lactated Ringer's (Ringers, Lactated) 1,000 mls @ 125 mls/hr IV ASDIRECTED [facility]
[2020-02-28] MEDS ORDERED: Ondansetron 4 MG/2 ML SDV ONE (11:14)
[2020-02-28] MEDS ORDERED: Lidocaine 2% 5 ML SDV ONE (11:14)
[2020-02-28] MEDS ORDERED: ceFAZolin/Dextrose,Iso-Osmotic 2 GM/50 ML Duplex Bag IV ONE (11:42)
[2020-02-28] MEDS ORDERED: Acetaminophen/HYDROcodone 325-5 MG Tab PO PRN (12:48)
[2020-02-28] MEDS ORDERED: Ondansetron 4 MG/2 ML SDV IVPUSH PRN (12:48)
[2020-02-28] MEDS ORDERED: Morphine 10 MG/ML Syringe IVPUSH PRN (12:48)
--- NOTE | 2020-02-28 12:54 | PCM.OPNOTE ---
- General Post-Op/Procedure Note Date of Surgery/Procedure: 02/28/20 Operative Procedure(s): Repair incarcerated left inguinal hernia with extra large Bard PerFix plug and patch Pre Op Diagnosis: Left inguinal hernia Post-Op Diagnosis: Incarcerated left inguinal hernia Anesthesia Technique: General LMA (ASA III) Primary Surgeon: Marin Kirk Fluid Replacement, Intraop: 700 EBL in mLs: 10 Condition: Good Free Text/Narrative:: DICTATION [id number] CPT CODE 61544
[2020-02-28] MEDS ORDERED: Lactated Ringers 1,000 ML IV SCH (13:00)
--- NOTE | 2020-02-28 13:15 | PCM.POSTAN ---
POST ANESTHESIA ASSESSMENT - MENTAL STATUS Mental Status: Alert, Oriented - VITAL SIGNS Vital Signs: Last Vital Signs Temp 36.2 C 02/28/20 12:45 Pulse 80 02/28/20 13:05 Resp 12 02/28/20 13:05 BP 135/80 02/28/20 13:05 Pulse Ox 96 02/28/20 13:05 - RESPIRATORY Respiratory Status: Respiratory Rate WNL, Airway Patent, O2 Saturation Stable - CARDIOVASCULAR CV Status: Pulse Rate WNL, Blood Pressure Stable - GASTROINTESTINAL GI Status: No Symptoms - PAIN Pain Score: 0 - POST OP HYDRATION Hydration Status: Adequate & Stable - OBSERVATIONS Free Text/Narrative:: No anesthesia problems.
[2020-02-28 14:01] VITALS: PULSE 74
--- NOTE | 2020-02-28 14:25 | PCM48HPAN ---
Post Anesthesia Note - EVALUATION WITHIN 48HRS OF ANESTHETIC Vital Signs in Normal Range: Yes Patient Participated in Evaluation: Yes Respiratory Function Stable: Yes Airway Patent: Yes Cardiovascular Function Stable: Yes Hydration Status Stable: Yes Pain Control Satisfactory: Yes Nausea and Vomiting Control Satisfactory: Yes Mental Status Recovered: Yes Vital Signs: Last Vital Signs Temp 36.2 C 02/28/20 12:45 Pulse 74 02/28/20 13:45 Resp 16 02/28/20 13:45 BP 143/83 H 02/28/20 13:45 Pulse Ox 96 02/28/20 13:45 - COMMENTS/OBSERVATIONS Free Text/Narrative:: No anesthesia problems
--- NOTE | 2020-02-28 15:40 | OR ---
SURGEON: Marin Kirk M.D. DATE OF PROCEDURE: 02/28/2020 OPERATION PERFORMED: Repair of incarcerated left inguinal hernia with extra-large Bard PerFix plug- and-patch. PRIMARY SURGEON: Marin Kirk MD ANESTHESIA: General LMA ASA CLASSIFICATION: III. PREOPERATIVE DIAGNOSIS: Left inguinal hernia. POSTOPERATIVE DIAGNOSIS: Left inguinal hernia. ESTIMATED BLOOD LOSS: 10 mL. INTRAOPERATIVE FLUID REPLACEMENT: 700 mL of crystalloid. DESCRIPTION OF PROCEDURE: The patient was taken to the operating room and placed on the operating table in the supine position. Time-out was called for appropriate identification of the patient and procedure. The surgical site had been marked prior to the patient entering the operating room. Sequential compression boots were placed. Following satisfactory attainment of general anesthesia with placement of an LMA, the abdomen was prepped with DuraPrep solution. Sterile drapes were applied. Skin incision was marked out on the left inguinal crease and infiltrated with 10 mL of 0.5% Marcaine solution. Skin incision was made and deepened through the subcutaneous tissue obtaining hemostasis with the use of electrocautery. Dissection was carried down to the external oblique fascia. This was opened in the direction of its fibers. The patient did have a large indirect hernia sac. This was mobilized away from the cord and the cord encircled with a Mcewen drain. Once the hernia sac was reduced, an extra-large Bard PerFix [id number] was brought to the operating table and soaked in 1% Ancef solution. The plug was placed into the internal ring and secured with interrupted 0 Ethibond sutures. The patch was placed over this with the wings brought around the cord. The patch was then secured with multiple interrupted 0 Ethibond sutures superiorly to transversalis fascia and inferiorly to Charbel ligament transitioning to the inguinal ligament. The wings were brought around the cord and secured laterally with a 0 Ethibond suture. All sutures were tied down. The patient was given a Valsalva maneuver to 30 cm of water and the repair was solid. Wound was inspected for hemostasis and small bleeding sites were electrocoagulated. The incision was irrigated with several 100 mL of 1% Ancef solution. All fluid was aspirated. The cord was returned to its anatomic location. The external oblique fascia was closed with 3-0 Vicryl. The Jessica fascia was reapproximated with 3-0 Vicryl and the skin edges were reapproximated with subcuticular 4-0 Monocryl. The incision was then dressed with Steri-Strips and a sterile Tegaderm pad. Sponge, needle, and instrument counts were all correct. The patient tolerated the procedure well. Following emergence from anesthesia and extubation, he was taken to recovery room in satisfactory condition. ANJALI NATHAN /[id number]
[2020-02-28 15:50] VITALS: BP 151/86
== END 2020-02-28 14:40 | disposition home or self-care (01) ==
LOC: MW.SDS 10:25
PROVIDERS: ATTEND Surgery
DX: K40.30 Unilateral inguinal hernia, with obstruction, without gangrene, not specified as recurrent (principal); E11.9 Type 2 diabetes mellitus without complications; E78.5 Hyperlipidemia, unspecified; I10 Essential (primary) hypertension; E78.00 Pure hypercholesterolemia, unspecified; Z79.82 Long term (current) use of aspirin; Z79.899 Other long term (current) drug therapy; Z98.890 Other specified postprocedural states; Z79.84 Long term (current) use of oral hypoglycemic drugs; Z87.891 Personal history of nicotine dependence
CPT/HCPCS: 49507; 82962; A9270; C1781; J0690; J2001; J2405; J2704; J3010; J3490; J7120; 00830

== ENCOUNTER 2021-03-30 06:30 | Day surgery (SDC) | payer MEDICARE, BC ==
[~2021-03-30 06:30] MED LIST changes: -ceFAZolin 2 GM in Premix Bag 1 BAG IV SCH
[2021-03-30] MEDS ORDERED: propofoL 50 ML ONE (07:00)
[2021-03-30] MEDS ORDERED: fentaNYL 100 MCG/2 ML SDV ONE (07:22)
--- NOTE | 2021-03-30 09:34 | PCM.PREANE ---
Preanesthetic Assessment - Anesthesia/Transfusion/Family Hx Anesthesia History: Prior Anesthesia Without Reaction Transfusion History: No Prior Transfusion(s) Intubation History: Unknown - Review of Systems General: No Symptoms Pulmonary: No Symptoms Cardiovascular: No Symptoms Gastrointestinal: No Symptoms Neurological: No Symptoms Other: Reports: None - Physical Assessment NPO Status Date: 03/30/21 NPO Status Time: 00:00 Vital Signs: Last Vital Signs Temp 96.8 F L 03/30/21 07:17 Pulse 87 03/30/21 07:17 Resp 16 03/30/21 07:17 BP 123/81 03/30/21 07:17 Pulse Ox 92 L 03/30/21 07:17 Height: 5 ft 11 in Weight: 183 lb ASA Class: 3 Mental Status: Alert & Oriented x3 Airway Class: Mallampati = 2 Dentition: Reports: Normal Dentition Thyro-Mental Finger Breadths: 3 Mouth Opening Finger Breadths: 3 ROM/Head Extension: Full Lungs: Clear to Auscultation, Normal Respiratory Effort Cardiovascular: Regular Rate, Regular Rhythm - Allergies Allergies/Adverse Reactions: Allergies Allergy/AdvReac Type Severity Reaction Status Date / Time No Known Allergies Allergy Verified 03/30/21 07:23 - Acknowledgements Anesthesia Type Planned: General Anesthesia Pt an Appropriate Candidate for the Planned Anesthesia: Yes Alternatives and Risks of Anesthesia Discussed w Pt/Guardian: Yes Pt/Guardian Understands and Agrees with Anesthesia Plan: Yes PreAnesthesia Questionnaire HEENT History: Reports: Other (See Below) Other HEENT History: wears glasses, states has hearing aids but never wears them Cardiovascular History: Reports: High Cholesterol, Hypertension Respiratory History: Reports: None Gastrointestinal History: Reports: Colon Polyp, Diverticulosis Genitourinary History: Reports: None Musculoskeletal History: Reports: Fracture Neurological History: Reports: None Psychiatric History: Reports: None, Other (See Below) Endocrine/Metabolic History: Reports: Diabetes, Type II, Hypothyroidism Hematologic History: Reports: None Immunologic History: Reports: None Oncologic (Cancer) History: Reports: None Dermatologic History: Reports: None - Infectious Disease History Infectious Disease History: Reports: Chicken Pox, Mumps, Shingles - Past Surgical History Head Surgeries/Procedures: Reports: None HEENT Surgical History: Reports: None Cardiovascular Surgical History: Reports: None Respiratory Surgical History: Reports: None GI Surgical History: Reports: Colonoscopy, EGD, Hernia, Inguinal Male Surgical History: Reports: None Endocrine Surgical History: Reports: None Neurological Surgical History: Reports: None Musculoskeletal Surgical History: Reports: Other (See Below) Other Musculoskeletal Surgeries/Procedures:: repair of fx ankle (states unsure if any hardware) Oncologic Surgical History: Reports: None Dermatological Surgical History: Reports: None - SUBSTANCE USE Tobacco Use Status *Q: Never Tobacco User Tobacco Use Within Last Twelve Months: No Recreational Drug Use History: No - HOME MEDS Home Medications: Home Meds Aspirin [Ecotrin EC] 81 mg PO DAILY 03/14/17 [History] Lisinopril 10 mg PO BEDTIME 03/14/17 [History] Simvastatin [Zocor] 10 mg PO BEDTIME 03/14/17 [History] metFORMIN [Glucophage XR] 1,000 mg PO BID 03/14/17 [History] Dulaglutide [Trulicity] 1 injection SUBCUT WEEKLY 02/24/20 [History] glipiZIDE [Glipizide ER] 5 mg PO DAILY 02/24/20 [History] Vit A/Vit C/Vit E/Zinc/Copper [Preservision] 1 tab PO BID 03/26/21 [History] - CURRENT (IN HOUSE) MEDS Current Meds: Current Medications Lactated Ringer's (Ringers, Lactated) 1,000 mls @ 125 mls/hr IV [facility]ED [facility] Last Admin: 03/30/21 07:22 Dose: 125 mls/hr Documented by: Discontinued Medications Fentanyl (Fentanyl 100 Mcg/2 Ml Sdv) Confirm Administered Dose 100 mcg .ROUTE .STK-MED ONE Stop: 03/30/21 07:23 Propofol (Diprivan 50 Ml) Confirm Administered Dose 50 mls @ as directed .ROUTE .STK-MED ONE Stop: 03/30/21 07:01 Lidocaine HCl (Lidocaine 1% 5 Ml Sdv) Confirm Administered Dose 5 ml .ROUTE .STK-MED ONE Stop: 03/30/21 07:23
--- NOTE | 2021-03-30 09:35 | PCM.POSTAN ---
POST ANESTHESIA ASSESSMENT - MENTAL STATUS Mental Status: Alert, Oriented - VITAL SIGNS Vital Signs: Last Vital Signs Temp 96.8 F L 03/30/21 07:17 Pulse 87 03/30/21 07:17 Resp 16 03/30/21 07:17 BP 123/81 03/30/21 07:17 Pulse Ox 92 L 03/30/21 07:17 - RESPIRATORY Respiratory Status: Respiratory Rate WNL, Airway Patent, O2 Saturation Stable - CARDIOVASCULAR CV Status: Pulse Rate WNL, Blood Pressure Stable - GASTROINTESTINAL GI Status: No Symptoms - POST OP HYDRATION Hydration Status: Adequate & Stable
--- NOTE | 2021-03-30 09:35 | PCM48HPAN ---
Post Anesthesia Note - EVALUATION WITHIN 48HRS OF ANESTHETIC Vital Signs in Normal Range: Yes Patient Participated in Evaluation: Yes Respiratory Function Stable: Yes Airway Patent: Yes Cardiovascular Function Stable: Yes Hydration Status Stable: Yes Pain Control Satisfactory: Yes Nausea and Vomiting Control Satisfactory: Yes Mental Status Recovered: Yes Vital Signs: Last Vital Signs Temp 96.8 F L 03/30/21 07:17 Pulse 87 03/30/21 07:17 Resp 16 03/30/21 07:17 BP 123/81 03/30/21 07:17 Pulse Ox 92 L 03/30/21 07:17
[2021-03-30 09:52] VITALS: BP 113/74; PULSE 74
--- NOTE | 2021-03-30 11:25 | OR ---
SURGEON: Marin Kirk M.D. DATE OF PROCEDURE: 03/30/2021 OPERATION PERFORMED: Colonoscopy with cold descending colon and cold rectal polypectomy. PRIMARY SURGEON: Marin Kirk M.D. ANESTHESIA: MAC. ASA CLASSIFICATION: III. PREOPERATIVE DIAGNOSES: 1. Unexplained weight loss. 2. Remote family history of colon cancer. POSTOPERATIVE DIAGNOSES: 1. Descending colon polyp. 2. Rectal polyps x2. 3. Moderate sigmoid diverticulosis. DESCRIPTION OF PROCEDURE: The patient was taken to the endoscopy room and positioned on the endoscopy table in the left lateral decubitus position. Time-out was called for appropriate identification of the patient and procedure. Monitored anesthesia care was provided. The colonoscope was inserted into the rectum and advanced with minimal difficulty to the cecum. The cecum was identified by internal landmarks and external pressure. The colonoscope was retroflexed to visualize the ascending colon from below and then straightened and slowly withdrawn. The cecum, ascending colon, hepatic flexure, transverse colon, and splenic flexure showed no tumors, polyps, diverticula, or angiodysplastic changes. One small polyp was encountered in the proximal descending colon and removed with the cold biopsy forceps. The colonoscope was then further withdrawn through the descending colon and sigmoid colon revealing moderate diverticular change in the sigmoid colon. No stricture, spasm, or bleeding was noted. No polyps or tumors were encountered in the sigmoid colon. As the colonoscope was withdrawn to the rectum, two small polyps were encountered in a very close proximity. These were both removed with cold biopsy forceps and sent for histologic analysis. The colonoscope was retroflexed to visualize the anal orifice from above. No tumors, polyps, or acute hemorrhoidal changes were noted. The colonoscope was then straightened, the rectum aspirated, and the colonoscope removed. The patient tolerated the procedure well and was taken to recovery room in satisfactory condition. ANJALI / VENITA /[id number]
== END 2021-03-30 09:53 ==
LOC: MW.SDS 06:30
PROVIDERS: ATTEND Surgery
DX: D12.8 Benign neoplasm of rectum (principal); D12.4 Benign neoplasm of descending colon; K57.30 Diverticulosis of large intestine without perforation or abscess without bleeding; E11.9 Type 2 diabetes mellitus without complications; E78.5 Hyperlipidemia, unspecified; I10 Essential (primary) hypertension; E03.9 Hypothyroidism, unspecified; R63.4 Abnormal weight loss; Z79.82 Long term (current) use of aspirin; Z79.899 Other long term (current) drug therapy; Z79.890 Hormone replacement therapy; Z87.19 Personal history of other diseases of the digestive system; Z98.890 Other specified postprocedural states
CPT/HCPCS: 45380; 82947; J2704; J3010; J7120; 00811; 88305; 99100

== ENCOUNTER 2023-06-03 17:33 | Emergency (ER) | payer MEDICARE, BC ==
[2023-06-03] MEDS ORDERED: Diphtheria,Pertussis(Acell),Tetanus Vaccine 0.5 ML Syringe IM ONE (17:38)
[2023-06-03 17:52] VITALS: BP 129/70; PULSE 108
[2023-06-03] MEDS ORDERED: Bacitracin Oint 28.35 GM Tube TOP STA (17:59)
== END 2023-06-03 18:17 | disposition home or self-care (01) ==
LOC: MW.ED 17:33
DX: S61.411A Laceration without foreign body of right hand, initial encounter (principal); E78.00 Pure hypercholesterolemia, unspecified; I10 Essential (primary) hypertension; E11.9 Type 2 diabetes mellitus without complications; Z79.84 Long term (current) use of oral hypoglycemic drugs; Z79.899 Other long term (current) drug therapy; Z23 Encounter for immunization
CPT/HCPCS: 12001; 90471; 90715; 99282; A9270; 99283

== ENCOUNTER 2023-06-12 10:43 | Emergency (ER) | payer MEDICARE, BC ==
[2023-06-12 11:14] VITALS: BP 133/66; PULSE 83
== END 2023-06-12 11:15 | disposition left against medical advice (07) ==
LOC: MW.ED 10:43
DX: Z53.21 Procedure and treatment not carried out due to patient leaving prior to being seen by health care provider (principal)